=== PATIENT | female | born 1955 | race Caucasian/White ===

== ENCOUNTER 2016-07-12 21:11 | Emergency (ER) | payer OTHER ==
[2016-07-12 21:22] VITALS: BP 139/84; TEMP 98.2; BMI 39.1
[2016-07-12] MEDS ORDERED: NORFLEX IM STA (21:35)
[2016-07-12] MEDS ORDERED: TORADOL IM STA (21:35)
--- NOTE | 2016-07-12 21:36 | ED.PDOC ---
General ED Provider: Dr. JENNIFER HARRISON Chief Complaint: Non-specific Complaint Stated Complaint: Maryjo is a 61 year old female who comes to the ER with a 3 day history of spasms on the right neck that started when she jerked while getting a rectal examination 3 days ago. she has tried over the counter medications and Aspercream to the neck with no relif. Neck is stiff. she denies any fever or Headache. Time Seen by Physician: 21:36 Mode of Arrival: Walk-In Information Source: Patient, Family Exam Limitations: No limitations Primary Care Provider: MARGARET MADRIGAL Nursing and Triage Documentation Reviewed and Agree: Yes Musculoskeletal Complaint Exam - Neck Pain Complaint/Exam Mechanism of Injury: Reports: No known trauma Onset/Duration: 3 days Symptoms Are: Still present Timing: Constant Initial Severity: Moderate Current Severity: Severe Location: Reports: Radiating (to the right shoulder ) Character: Reports: Aching, Spasmodic Aggravating: Reports: Position, Movement Alleviating: Reports: None Associated Signs and Symptoms: Reports: Nuchal rigidity. Denies: Swelling, Redness, Bruising, Fever, Weakness, Headache, Paresthesia Meningitis Risk Factors: Reports: None Cervical Spine Injury Risk Factors: Reports: None Related Surgical History: Reports: None Carotid Bruit Present: No Pain on Passive Flexion: No Positive Kernig's Sign: No ROM Limited In: Present: Flexion Pain Located at: right paraspinal area. Tenderness: Present: Paraspinal Radiates to: Present: Right arm Focal Weakness: Present: None Focal Sensory Loss: Reports: None Nexus Low Risk Criteria: No post-midline CS tender, No evidence of intoxicat., No Altered LOC, No focal neuro deficit, No distracting injuries Differential Diagnoses: Sprain, Strain, Torticollis Review of Systems - Review Of Systems Constitutional: Reports: No symptoms Eyes: Reports: No symptoms Ears, Nose, Mouth, Throat: Reports: No symptoms Respiratory: Reports: No symptoms Cardiac: Reports: No symptoms GI: Reports: No symptoms : Reports: No symptoms Musculoskeletal: Reports: Muscle pain, Muscle stiffness, Neck pain Skin: Reports: No symptoms Neurological: Reports: Anxiety Endocrine: Reports: No symptoms Hematologic/Lymphatic: Reports: No symptoms All Other Systems: Reviewed and Negative Past Medical History - Past Medical History Endocrine: Reports: Hypothyroid Cardiovascular: Reports: Hypertension Respiratory: Reports: None Hematological: Reports: None Gastrointestinal: Reports: None Genitourinary: Reports: None Neuro/Psych: Reports: None Musculoskeletal: Reports: Arthritis Cancer: Reports: None Last Menstrual Period: PT HAS HAD A HYSTERECTOMY - Surgical History General Surgical History: Reports: Hysterectomy, Appendectomy, Other ( lumpectomy right breast ) - Family History Family History: Reports: None - Social History Smoking Status: Never smoker Hx Substance Use: No Alcohol Screening: Heavy - Immunizations Tetanus Shot up to Date: Yes Physical Exam - Physical Exam Appearance: Ill-appearing Ill-appearing: Mild Pain Distress: Severe Eyes: ELKE, EOMI Neck: Nonsupple Respiratory: Airway patent, Breath sounds clear, Breath sounds equal Cardiovascular: RRR, Pulses normal, No rub, No murmur Musculoskeletal: Limited ROM (on the neck ) Skin: Warm, Dry Neurological: Alert, Oriented Psychiatric: Anxious Critical Care Note - Critical Care Note Total Time (mins): 0 Course - Course Orders, Labs, Meds: Orders Category Date Time Status Diazepam [Valium] MEDS 07/12/16 22:38 Discontinued 5 mg .ROUTE .STK-MED ONE Diazepam [Valium] MEDS 07/12/16 22:36 Discontinued 5 mg PO ONCE STA Ketorolac Tromethamine [Toradol] MEDS 07/12/16 21:35 Discontinued 60 mg IM ONCE STA Orphenadrine Citrate [Norflex] MEDS 07/12/16 21:35 Discontinued 60 mg IM ONCE STA Medications Discontinued Medications Generic Name Dose Route Start Last Admin Trade Name Freq PRN Reason Stop Dose Admin Diazepam 5 mg 07/12/16 22:36 07/12/16 22:41 Valium PO 07/12/16 22:37 5 mg ONCE STA Administration Ketorolac Tromethamine 60 mg 07/12/16 21:35 07/12/16 21:51 Toradol IM 07/12/16 21:36 60 mg ONCE STA Administration Orphenadrine Citrate 60 mg 07/12/16 21:35 07/12/16 21:50 Norflex IM 07/12/16 21:36 60 mg ONCE STA Administration Vital Signs: Temp Pulse Resp BP Pulse Ox 07/12/16 21:13 98.2 F 72 20 139/84 99 Departure - Departure Time of Disposition: 22:40 Disposition: HOME SELF-CARE Discharge Problem: Muscle spasms of neck Instructions: Muscle Spasm (ED) Condition: Fair Pt referred to PMD for follow-up: Yes Additional Instructions: Take medications as prescribed. Follow up with PCP in 3 days Rest. ICE, continue Aspercream to area Follow up with therapy next week. Prescriptions: Cyclobenzaprine HCl [Flexeril] 5 mg PO TID PRN #20 tablet PRN Reason: Spasms Ibuprofen [Motrin] 600 mg PO Q6H PRN #30 tablet PRN Reason: Analgesia Allergies/Adverse Reactions: Allergies adhesive Adverse Reaction (Verified 07/12/16 21:21) Home Medications: Ambulatory Orders Estrogens, Conjugated [Premarin] 0.625 mg PO DAILY 08/03/14 Lisinopril 40 mg PO DAILY 08/03/14 Hydrochlorothiazide 2 tab PO DAILY 08/05/14 Levothyroxine Sodium [Synthroid] 200 mcg PO DAILY 08/05/14 Cyclobenzaprine HCl [Flexeril] 5 mg PO TID PRN #20 tablet 07/12/16 Ibuprofen [Motrin] 600 mg PO Q6H PRN #30 tablet 07/12/16 Disposition Discussed With: Patient
[2016-07-12] MEDS ORDERED: VALIUM SYRINGE IM STA (22:19)
[2016-07-12] MEDS ORDERED: VALIUM PO STA (22:36)
[2016-07-12] MEDS ORDERED: VALIUM ONE (22:38)
== END 2016-07-12 22:51 | disposition home or self-care (01) ==
LOC: ED 21:11
DX: M62.830 Muscle spasm of back (principal); M54.2 Cervicalgia
CPT/HCPCS: 96372; 99282

== ENCOUNTER 2016-10-01 12:59 | Outpatient (CLI) ==
--- NOTE | 2016-10-01 14:38 | DEXA ---
EXAM: DEXA scan. HISTORY: Post menopausal. COMPARISON: None available. TECHNIQUE: [employer] [facility] [id number]. DEXA scan lumbar spine performed. Quality of the study is good. BMD is 1.774 grams per square cent imeter. T-score 5.0. Z-score 5.3. DEXA scan hips performed. Quality of the study is good. BMD 1.4 grams per square centimeter. T-sco re 3.1. Z-score 3.4. IMPRESSION: According to the World Health Organization classification, lumbar spine and hip bone mineral density demonstrates normal mineralization, with no increased fracture risk. Ten-year major osteoporotic f racture risk is 4.1%. Ten-year hip fracture risk is 0%.
--- NOTE | 2016-10-02 07:34 | MAMMO ---
EXAM: Digital screening mammogram HISTORY: Screening mammogram COMPARISON: Mammogram 08/25/2015 and 07/25/2014 FINDINGS: Bilateral CC and MLO views of the breasts were performed digitally and demonstrate scatte red fibroglandular breast density (25 - 50%). There is no abnormal nodule or calcification. Axillar y lymph nodes are unchanged. There is no significant interval change. IMPRESSION: No new or suspicious calcification or nodule RECOMMENDATION: Annual screening mammogram BIRADS category 1: Negative
== END 2016-10-01 13:00 | disposition home or self-care (01) ==
LOC: RAD 12:59
PROVIDERS: ATTEND Family Medicine
DX: Z12.31 Encounter for screening mammogram for malignant neoplasm of breast (principal); Z78.0 Asymptomatic menopausal state; E55.9 Vitamin D deficiency, unspecified

== ENCOUNTER 2017-06-18 10:12 | Outpatient (CLI) ==
--- NOTE | 2017-06-18 10:53 | DI ---
EXAM: Left hand two views HISTORY: Hand pain without injury FINDINGS: There is moderate osteoarthritis of the first carpal-metacarpal joint and milder arthropat hy at the lateral intercarpal articulations. Bone and joint structures were otherwise unremarkable. No fracture or joint dislocation. IMPRESSION: Moderate osteoarthritis at the first carpal-metacarpal joint.
--- NOTE | 2017-06-18 11:07 | DI ---
EXAM: Three views of the right hand HISTORY: Right hand pain with no injury. COMPARISON: Left hand x-rays same day and right hand x-rays 12/02/2010 FINDINGS: Two views of the right hand demonstrate degenerative disease with narrowing and osteophyte formation of the first CMC joint. There is no lytic or blastic lesion. The joint spaces are maintai juan. There is no lytic or blastic lesion. Soft tissues are unremarkable. 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
--- NOTE | 2017-06-18 11:19 | US ---
EXAM: Sonographic evaluation of the right lateral neck HISTORY: Lateral neck fat pad. COMPARISON: Soft tissue neck ultrasound 04/23/2016 FINDINGS: Sonographic evaluation of the posterior neck demonstrates no definitive abnormality. In th e right lateral neck. There is a heterogeneous area of soft tissue measuring 5.1 x 3.5 x 5.8 cm. Th is demonstrates no significant internal color Doppler flow. There is an adjacent lymph node with a f atty hilum measuring 1.1 cm and long axis. In the left lateral neck. There is a similar appearing n ear isoechoic mass measuring 5.3 x 3.2 x 3.2 cm with no significant internal color Doppler flow. IMPRESSION: Bilateral mildly heterogeneous/isoechoic soft tissue, suggestive of lipomas. No definitive mass is p resent. Normal appearing right sided lymph node is present.
--- NOTE | 2017-06-18 11:47 | DI ---
EXAM: Six views of the cervical spine HISTORY: Neck pain. COMPARISON: None FINDINGS: There is reversal of the normal cervical curvature with no discrete compression fracture. There is 0.2 cm of retrolisthesis of C6 on C7. There is disc space narrowing of C5 through C7 with o steophyte formation. Soft tissues are unremarkable. There is bilateral mild to moderate neural fora johnnie narrowing at C5-C6 and C6-C7. IMPRESSION: 1. No acute compression fracture or subluxation. There is multilevel degenerative disease with mild reversal of the cervical lordosis. 2. There is mild bilateral neural foraminal narrowing noted at C5-C6 and C6-C7.
== END 2017-06-18 10:13 | disposition home or self-care (01) ==
LOC: RAD 10:12
PROVIDERS: ATTEND Family Medicine
DX: M79.641 Pain in right hand (principal); M79.642 Pain in left hand; E65 Localized adiposity; M54.2 Cervicalgia